=== PATIENT | male | born 1940 | race Caucasian/White ===

== ENCOUNTER 2022-06-01 17:24 | Emergency (ER) | payer MEDICARE ==
[~2022-06-01] VITALS: Ht 177.8 cm; Wt 79.4 kg
[~2022-06-01 17:24] MED LIST: ASPI-1012 PO; FENO145T PO; FISH1CAP49 PO; METO100T7 PO; VALS1TAB8 PO; WARF4TAB72 PO
[2022-06-01 17:54] LABS: BASOPHILS % (AUTO) 0.6 % (0.0-5.0); EOSINOPHILS % (AUTO) 1.3 % (0.0-8.0); HEMATOCRIT 49.9 % (42-54); LYMPHOCYTES % (AUTO) 21.1 % (21.0-51.0); MEAN CORPUSCULAR HEMOGLOBIN 30.4 pg (27.0-33.0); MEAN CORPUSCULAR HGB CONC 34.7 g/dL (32.0-36.0); MEAN CORPUSCULAR VOLUME 87.7 fL (79-99); MONOCYTES % (AUTO) 10.2 % (3.0-13.0); NEUTROPHILS % (AUTO) 66.3 % (40.0-77.0); PLATELET COUNT (AUTO) 163 K/uL (130-400); RED BLOOD CELL COUNT(AUTO) 5.69 MIL/uL (4.50-6.20); WHITE BLOOD COUNT (AUTO) 7.9 K/uL (4.8-10.8)
[2022-06-01] MEDS ORDERED: 0.9%NACL 1000ML 1,000 ML IV ONE (18:00)
[2022-06-01] MEDS ORDERED: KETOROLAC 15MG/ML VIAL (15MG/ML) IV ONE (18:00)
[2022-06-01 18:06] LABS: APPEARANCE,URINE CLEAR (CLEAR); BILIRUBIN,URINE NEGATIVE (NEGATIVE); COLOR,URINE YELLOW (YELLOW); GLUCOSE, URINE (UA) NEGATIVE (NEGATIVE); KETONES,URINE NEGATIVE (NEGATIVE); LEUKOCYTE ESTERASE ,URINE NEGATIVE Leu/uL (NEGATIVE); NITRATE,URINE NEGATIVE (NEGATIVE); OCCULT BLOOD,URINE NEGATIVE (NEGATIVE); PROTEIN,URINE 100 mg/dL (NEGATIVE); UROBILINOGEN,URINE 0.2 mg/dL (0.2-1.0)
[2022-06-01] MEDS ORDERED: AMLO-343 PO (18:09)
[2022-06-01] MEDS ORDERED: APIX5TAB PO (18:09)
[2022-06-01] MEDS ORDERED: IRBE75TA9 PO (18:09)
[2022-06-01] MEDS ORDERED: FLUT16H NASAL (18:09)
[2022-06-01] MEDS ORDERED: HYDR12.54 PO (18:09)
[2022-06-01] MEDS ORDERED: ROSU10TA28 PO (18:09)
[2022-06-01] MEDS ORDERED: METF-444 PO (18:09)
[2022-06-01 18:11] LABS: POTASSIUM 4.4 mmol/L (3.5-5.1)
[2022-06-01 18:13] LABS: BACTERIA,URINE RARE /HPF (None Seen); MUCUS,URINE RARE LPF (None Seen); RBC,URINE 0-1 /HPF (0-1); SQUAMOUS EPITHELIAL CELL,UR RARE /HPF (0-2)
[2022-06-01 18:16] LABS: ALBUMIN 3.5 g/dL (3.5-5.0)
[2022-06-01 18:17] LABS: PARTIAL THROMBOPLASTIN TIME 27.9 SEC (26.3-35.5)
[2022-06-01 18:34] LABS: INR 1.23 (0.85-1.15); PROTHROMBIN TIME 13.2 SEC (9.6-11.6)
[2022-06-01] MEDS ORDERED: TRAM50TA4 PO (18:55)
[2022-06-01] MEDS ORDERED: ACET-66 PO (18:55)
[2022-06-01] MEDS ORDERED: ONDANSETRON 4MG INJ IVP ONE (19:00)
[2022-06-01] MEDS ORDERED: MORPHINE 2 MG SYG IVP ONE (19:00)
[2022-06-01 20:17] VITALS: BP 148/72
== END 2022-06-01 20:24 | disposition home or self-care (01) ==
LOC: EDH 17:24
DX: M79.662 Pain in left lower leg (principal); I10 Essential (primary) hypertension; E86.0 Dehydration; E78.00 Pure hypercholesterolemia, unspecified; E11.9 Type 2 diabetes mellitus without complications; I48.91 Unspecified atrial fibrillation; Z79.84 Long term (current) use of oral hypoglycemic drugs; Z79.899 Other long term (current) drug therapy
CPT/HCPCS: 99285; 80053; 85025; 85610; 85730; 81001; 36415; 93971; 96374; 96361; 96375; J7030; J2405; J1885

== ENCOUNTER 2022-06-27 09:25 | Observation (INO) | payer MEDICARE ==
[~2022-06-27] VITALS: Ht 180.3 cm; Wt 79.4 kg
[~2022-06-27 09:25] MED LIST changes: +ACET-66 PO; +AMLO-343 PO; +APIX5TAB PO; -ASPI-1012 PO; -FENO145T PO; -FISH1CAP49 PO; +FLUT16H NASAL; +HYDR12.54 PO; +IRBE75TA9 PO; +METF-444 PO; +ROSU10TA28 PO; +TRAM50TA4 PO; -VALS1TAB8 PO; -WARF4TAB72 PO
[2022-06-27 09:46] LABS: BASOPHILS % (AUTO) 0.4 % (0.0-5.0); EOSINOPHILS % (AUTO) 0.7 % (0.0-8.0); HEMATOCRIT 48.2 % (42-54); LYMPHOCYTES % (AUTO) 14.3 % (21.0-51.0); MEAN CORPUSCULAR HEMOGLOBIN 31.2 pg (27.0-33.0); MEAN CORPUSCULAR HGB CONC 34.9 g/dL (32.0-36.0); MEAN CORPUSCULAR VOLUME 89.6 fL (79-99); MONOCYTES % (AUTO) 6.7 % (3.0-13.0); NEUTROPHILS % (AUTO) 77.5 % (40.0-77.0); PLATELET COUNT (AUTO) 129 K/uL (130-400); RED BLOOD CELL COUNT(AUTO) 5.38 MIL/uL (4.50-6.20); RED CELL DISTRIBUTION WIDTH 14.4 % (11.0-15.5); WHITE BLOOD COUNT (AUTO) 13.2 K/uL (4.8-10.8)
[2022-06-27] MEDS ORDERED: IOHEXOL 350 MG/ML 100ML INFUS..BTL IV ONE ×2 (09:54→15:58)
[2022-06-27] MEDS ORDERED: MORPHINE 4 MG SYG IVP ONE ×2 (10:00→14:30)
[2022-06-27] MEDS ORDERED: ONDANSETRON 4MG INJ IVP ONE (10:00)
[2022-06-27 10:03] LABS: POTASSIUM 3.1 mmol/L (3.5-5.1)
[2022-06-27 11:17] LABS: APPEARANCE,URINE CLEAR (CLEAR); BILIRUBIN,URINE NEGATIVE (NEGATIVE); COLOR,URINE LIGHT-YELLOW (YELLOW); GLUCOSE, URINE (UA) 300 mg/dL (NEGATIVE); KETONES,URINE 10 mg/dL (NEGATIVE); LEUKOCYTE ESTERASE ,URINE NEGATIVE Leu/uL (NEGATIVE); NITRATE,URINE NEGATIVE (NEGATIVE); OCCULT BLOOD,URINE NEGATIVE (NEGATIVE); PROTEIN,URINE 50 mg/dL (NEGATIVE); UROBILINOGEN,URINE 0.2 mg/dL (0.2-1.0)
[2022-06-27] MEDS ORDERED: MORPHINE 2 MG SYG IVP ONE (11:30)
[2022-06-27] MEDS ORDERED: 0.9%NACL 1000ML 1,000 ML IV ONE (11:30)
[2022-06-27 12:28] LABS: BACTERIA,URINE Few /HPF (None Seen); RBC,URINE 0-1 /HPF (0-1); WBC,URINE 0-1 /HPF (0-1)
[2022-06-27] MEDS ORDERED: ZOSYN 3.375GM +NS 50ML IVPB ONE (14:00)
[2022-06-27] MEDS ORDERED: HYDROMORPHONE 0.5 MG SYG (0.5MG/0.5ML) IVP PRN (15:00)
[2022-06-27] MEDS ORDERED: ONDANSETRON 4MG INJ IVP PRN (15:00)
[2022-06-27] MEDS: ZOSYN 3.375GM +NS 50ML IVPB SCH ×2 (15:00→22:56)
[2022-06-27] MEDS: 1/2 NS 1000ML 1,000 ML IV SCH ×2 (15:19→22:27)
[2022-06-27] MEDS: INSULIN HUMULIN R 100 UNIT/ML 3ML SQ SCH ×2 (16:30→20:33)
[2022-06-27 16:45] VITALS: BP 187/108
[2022-06-27] MEDS ORDERED: TAMS-1 PO (17:09)
[2022-06-27] MEDS ORDERED: IRBE300T18 PO (17:09)
[2022-06-27 20:36] VITALS: BP 171/87
[2022-06-27 23:08] VITALS: BP 167/72
[2022-06-28 03:49] VITALS: BP 161/72
[2022-06-28] MEDS: 1/2 NS 1000ML 1,000 ML IV SCH ×2 (04:21→09:29)
[2022-06-28 06:09] LABS: HEMATOCRIT 48.2 % (42-54); MEAN CORPUSCULAR HEMOGLOBIN 31.2 pg (27.0-33.0); MEAN CORPUSCULAR VOLUME 91.6 fL (79-99); RED BLOOD CELL COUNT(AUTO) 5.26 MIL/uL (4.50-6.20); RED CELL DISTRIBUTION WIDTH 14.6 % (11.0-15.5); WHITE BLOOD COUNT (AUTO) 10.3 K/uL (4.8-10.8)
[2022-06-28] MEDS: INSULIN HUMULIN R 100 UNIT/ML 3ML SQ SCH ×2 (06:34→11:06)
[2022-06-28 06:38] LABS: ALBUMIN 3.4 g/dL (3.5-5.0); CREATININE 1.1 mg/dL (0.5-1.5); POTASSIUM 3.8 mmol/L (3.5-5.1); TOTAL PROTEIN, SERUM 6.9 g/dL (6.0-8.3)
[2022-06-28] MEDS: ZOSYN 3.375GM +NS 50ML IVPB SCH (06:44)
[2022-06-28 07:30] VITALS: BP 157/69
[2022-06-28] MEDS ORDERED: PANTOPRAZOLE 40 MG/VIAL IVP SCH (09:00)
[2022-06-28] MEDS ORDERED: ENOXAPARIN SODIUM 40 MG/0.4 ML SYRINGE SQ SCH (09:00)
[2022-06-28 11:00] VITALS: BP 143/74
== END 2022-06-28 13:41 | disposition home or self-care (01) ==
LOC: EDH 09:25 → EDHIP 14:39 → INTOOBSV 14:39 → 3CH 16:45
PROVIDERS: ADMIT Internal Medicine; ATTEND Internal Medicine
DX: R10.9 Unspecified abdominal pain (principal); E87.20 Acidosis, unspecified; I10 Essential (primary) hypertension; E11.9 Type 2 diabetes mellitus without complications; I71.9 Aortic aneurysm of unspecified site, without rupture; I48.91 Unspecified atrial fibrillation; R11.2 Nausea with vomiting, unspecified; I47.1 Supraventricular tachycardia; Z79.899 Other long term (current) drug therapy
CPT/HCPCS: 96376; 96361 ×2; 96365; 96366 ×2; 96375 ×2; 99285; 84484; 80053 ×2; 83690; 85025; 82948 ×4; 83605; 81001; 36415 ×2; 71045; 74174; 74177; 76700; 93005; 96372; 85027; J7030; J2405; J2270; J2543 ×3; J1170; Q9967 ×2; G0378 ×3; C9113; J1650